=== PATIENT | male | born 1965 | race Asian ===

== ENCOUNTER 2019-04-10 20:34 | Emergency (ER) | payer OTHER | END 2019-04-10 21:43 | disposition home or self-care (01) | LOC: FTE 20:34 | DX: N50.1 Vascular disorders of male genital organs (principal); S30.22XA Contusion of scrotum and testes, initial encounter; X58.XXXA Exposure to other specified factors, initial encounter; Y92.9 Unspecified place or not applicable | CPT/HCPCS: 99282 ==